=== PATIENT | male | born 1990 | race Caucasian/White ===

== ENCOUNTER → 2023-12-07 12:41 | Outpatient (CLI) | payer OTHER, SELFPAY ==
[2023-12-07 13:48] LABS: Add Manual Diff / Slide Review NO; Basophils Absolute Auto 0 /uL (0-100); Basophils Percent Auto 0.6 % (0-2); Eosinophils Absolute Auto 100 /uL (0-450); Eosinophils Percent Auto 1.3 % (2-4); Hematocrit 46.4 % (41-53); Hemoglobin 16.3 g/dL (13.5-17.5); Lymphocytes Absolute Auto 1300 /uL (1100-4500); Lymphocytes Percent Auto 29.8 % (25-40); Mean Corpuscular HGB Conc 35.2 % (30-36); Mean Corpuscular Hemoglobin 30.4 PG (26-34); Mean Corpuscular Volume 86.3 fL (80-100); Monocytes Absolute Auto 400 /uL (0-900); Monocytes Percent Auto 8.9 % (3-14); Neutrophils Absolute Auto 2600 /uL (1500-7000); Neutrophils Percent Auto 59.4 % (50-75); Platelet Count 270 X10^3/uL (150-400); Red Blood Cell Count 5.38 X10^6/uL (4.5-5.9); Red Cell Distribution Width 13.2 % (11.6-14.8); White Blood Cell Count 4.4 X10^3/uL (4.5-11.0)
[2023-12-07 13:58] LABS: Alanine Aminotransferase 46 IU/L (<50); Albumin 4.6 g/dL (3.5-5.0); Albumin Globulin Ratio 1.4 (1.0-2.8); Alkaline Phosphatase 71 U/L (38-126); Aspartate Aminotransferase 27 IU/L (17-59); Bilirubin Total 0.9 mg/dL (0.2-1.3); Blood Urea Nitrogen 16 mg/dL (9-20); Calcium 9.7 mg/dL (8.4-10.2); Carbon Dioxide 25 mmol/L (22-32); Chloride 104 mmol/L (98-107); Cholesterol 190 mg/dL (140-199); Estimated Glomerular Filt Rate > 60 mL/min (>60); Globulin 3.4 g/dL (1.7-4.1); Glucose 103 mg/dL (70-100); HDL Cholesterol 46 mg/dL (40-60); HEMOLYSIS < 15 (0-50); LDL Cholesterol Calculated 129 mg/dL (<100); Sodium 138 mmol/L (137-145); Triglycerides 77 mg/dL (35-150)
[2023-12-07 14:18] LABS: HEMOLYSIS < 15 (0-50); Iron 123 ug/dL (49-181)
[2023-12-07 14:19] LABS: Erythrocyte Sedimentation Rate 3 MM/HR (0-15)
[2023-12-07 14:28] LABS: Percent Iron Saturation 41 % (20-50); Total Iron Binding Capacity 298 ug/dL (261-462); Transferrin 252 mg/dL (206-381)
[2023-12-07 14:48] LABS: TSH w/ Reflex to FT4 0.76 uIU/mL (0.47-4.68)
[2023-12-09 22:37] LABS: Deamidated Gliadin Ab IgA 8 units (0-19); Deamidated Gliadin Ab IgG 13 units (0-19); Immunoglobulin A,Qn 273 mg/dL (90-386); t-Transglutaminase IgA <2 U/mL (0-3)
== END ==
PROVIDERS: Family Provider Pediatrics; PCP Family Medicine; Referring Provider Family Medicine; Visit Provider Family Medicine
DX: R03.0 Elevated blood-pressure reading, without diagnosis of hypertension (principal); R63.4 Abnormal weight loss; R19.8 Other specified symptoms and signs involving the digestive system and abdomen; E66.9 Obesity, unspecified
CPT/HCPCS: 36415; 80053; 80061; 82784; 83036; 83516; 83540; 83550; 84443; 85025; 85651